=== PATIENT | male | born 1985 | race American Indian/Alaskan Native ===

== ENCOUNTER 2018-10-29 23:57 | Emergency (ER) | payer OTHER ==
[2018-10-30] MEDS ORDERED: TESSALON PERLES PO ONE (04:21)
[2018-10-30] MEDS ORDERED: IBUPROFEN PO ONE (04:21)
--- NOTE | 2018-10-30 04:27 | Emergency Department Report ---
ED General Adult HPI - General Chief complaint: Dyspnea/Respdistress Stated complaint: SOB/HEADACHE/BACK PAIN/CHILLS Time Seen by Provider: 10/30/18 04:20 Source: patient Mode of arrival: Ambulatory Limitations: No Limitations - History of Present Illness Initial comments: 89 -[place]ian male presents to the emergency room complaining of shortness of breathing, headache, back pain, nausea, vomiting, chills 2 days. Patient reports a past medical history of heart surgery at age of 3. Patient currently takes no medications on a daily basis has no known drug allergies. Patient reports he last vomited yesterday approximately 5 PM. Patient denies any nausea currently. -: days(s) (2) Location: head Severity scale (0 -10): 6 Quality: aching Consistency: intermittent Worsens with: none Associated Symptoms: cough, headaches, nausea/vomiting, shortness of breath - Related Data Previous Rx's Medication Instructions Recorded Last Taken Type Benzonatate [Tessalon Perle] 100 mg PO Q8H PRN #15 capsule 10/30/18 Unknown Rx Ondansetron [Zofran Odt] 4 mg PO Q8HR PRN #8 tab.rapdis 10/30/18 Unknown Rx Allergies Allergy/AdvReac Type Severity Reaction Status Date / Time No Known Allergies Allergy Unverified 10/30/18 00:00 ED Review of Systems ROS: Stated complaint: SOB/HEADACHE/BACK PAIN/CHILLS Other details as noted in HPI Comment: All other systems reviewed and negative Constitutional: chills Respiratory: cough Gastrointestinal: nausea, vomiting, diarrhea. denies: abdominal pain Genitourinary: denies: urgency, dysuria Musculoskeletal: back pain Skin: denies: rash, lesions Neurological: headache Psychiatric: denies: anxiety, depression Hematological/Lymphatic: denies: easy bleeding, easy bruising ED Past Medical Hx - Past Medical History Previous Medical History?: Yes Hx Asthma: Yes - Surgical History Past Surgical History?: Yes Additional Surgical History: Heart SX at 3 years old - Social History Smoking Status: Current Every Day Smoker - Medications Home Medications: Home Medications Medication Instructions Recorded Confirmed Last Taken Type Benzonatate [Tessalon Perle] 100 mg PO Q8H PRN #15 capsule 10/30/18 Unknown Rx Ondansetron [Zofran Odt] 4 mg PO Q8HR PRN #8 tab.rapdis 10/30/18 Unknown Rx ED Physical Exam - General Limitations: No Limitations General appearance: alert, in no apparent distress - Head Head exam: Present: atraumatic, normocephalic - Eye Eye exam: Present: PERRL, EOMI - ENT ENT exam: Present: mucous membranes moist - Neck Neck exam: Present: normal inspection, full ROM - Respiratory Respiratory exam: Present: normal lung sounds bilaterally. Absent: respiratory distress - Cardiovascular Cardiovascular Exam: Present: regular rate, normal rhythm. Absent: systolic murmur, diastolic murmur, rubs, gallop - GI/Abdominal GI/Abdominal exam: Present: soft, normal bowel sounds. Absent: distended, tenderness - Neurological Exam Neurological exam: Present: alert, oriented X3 - Psychiatric Psychiatric exam: Present: normal affect, normal mood - Skin Skin exam: Present: warm, dry, intact, normal color. Absent: rash ED Course Vital Signs 10/30/18 04:23 Pulse Rate 90 Respiratory 18 Rate Blood Pressure 96/62 [Left] O2 Sat by Pulse 94 Oximetry ED Medical Decision Making - Radiology Data Radiology results: report reviewed Patient: DRAKE WHATLEY MR#: [id number] : 1985 Acct:[id number] Age/Sex: 33 / M ADM Date: 10/29/18 Loc: ED Attending Dr: Ordering Physician: AKASH BURKS Date of Service: 10/30/18 Procedure(s): XR chest routine 2V Accession Number(s): [id number] cc: AKASH BURKS Fluoro Time In Minutes: PROCEDURE: XR CHEST ROUTINE 2V TECHNIQUE: PA and lateral chest radiographs were obtained. HISTORY: sob, cough COMPARISONS: None. FINDINGS: Heart: Normal. Mediastinum/Vessels: Normal. Lungs/Pleural space: Normal. Bony thorax: No acute osseous abnormality. IMPRESSION: Normal examination. This document is electronically signed by Cristal Sanchez DO., October 30 2018 04:46:50 AM ET Transcribed By: [facility] Dictated By: CRISTAL SANCHEZ MD Electronically Authenticated By: CRISTAL SANCHEZ MD Signed Date/Time: 10/30/189 DD/ 5 TD/TT: 10/30/18435 - Medical Decision Making Patient has been evaluated. Chest x-ray shows normal examination Patient given Tessalon Perles. Critical care attestation.: If time is entered above; I have spent that time in minutes in the direct care of this critically ill patient, excluding procedure time. ED Disposition Clinical Impression: Viral syndrome Disposition: DC-01 TO HOME OR SELFCARE Is pt being admited?: No Does the pt Need Aspirin: No Condition: Stable Instructions: Viral Syndrome (ED) Additional Instructions: Please take cough medication and nausea medication as needed. Increase her fluid intake eventually as tolerated. Tylenol and/or Motrin for fever and pain control. Follow up with primary care provider if symptoms persist or gets worse. Prescriptions: Benzonatate [Tessalon Perle] 100 mg PO Q8H PRN #15 capsule PRN Reason: Cough Ondansetron [Zofran Odt] 4 mg PO Q8HR PRN #8 tab.rapdis PRN Reason: Nausea And Vomiting Referrals: ANNE MARIE ALVARADO MD [Primary Care Provider] - 3-5 Days Forms: Work/School Release Form(ED)
[2018-10-30 04:36] VITALS: BP 96/62
--- NOTE | 2018-10-30 04:49 | XRay Report ---
PROCEDURE: XR CHEST ROUTINE 2V TECHNIQUE: PA and lateral chest radiographs were obtained. HISTORY: sob, cough COMPARISONS: None. FINDINGS: Heart: Normal. Mediastinum/Vessels: Normal. Lungs/Pleural space: Normal. Bony thorax: No acute osseous abnormality. IMPRESSION: Normal examination. This document is electronically signed by Cristal Sanchez DO., October 30 2018 04:46:50 AM ET
== END 2018-10-30 05:37 | disposition home or self-care (01) ==
LOC: ED 23:57
DX: B34.9 Viral infection, unspecified (principal); F17.200 Nicotine dependence, unspecified, uncomplicated; J45.909 Unspecified asthma, uncomplicated
CPT/HCPCS: 71046